=== PATIENT | female | born 1960 | race Caucasian/White ===

== ENCOUNTER 2018-03-25 11:33 | Outpatient (REF) | payer MEDICAID, SELFPAY ==
[2018-03-25 12:50] LABS: BUN 24 mg/dL (7-18); CREATININE 0.98 mg/dL (0.55-1.02); Calcium 9.3 mg/dL (8.5-10.1); Chloride 103 mmol/L (98-107); Estimated GFR 58.29 (mL/min/1.73m2); Glucose 65 mg/dL (70-100); Sodium 142 mmol/L (136-145)
== END 2018-03-25 11:53 ==
LOC: NCHCN 11:33
PROVIDERS: PCP Family Medicine; Visit Provider Family Medicine
DX: N28.9 Disorder of kidney and ureter, unspecified (principal)
CPT/HCPCS: 80048

== ENCOUNTER 2018-07-22 02:25 | Outpatient (CLI) | payer MEDICAID, SELFPAY ==
--- NOTE | 2018-07-22 08:50 | DI.MAMMO_ITS ---
SYMPTOMS/DIAGNOSIS: SCREENING, Z12.31 MAMMOGRAM: Mammograms were interpreted according to the usual protocol including computer analysis with CAD system, tomosynthesis and C view imaging. The breasts are of moderate density with fairly symmetrical distribution of fibroglandular tissue. No dominant mass or clumped microcalcification is identified in either breast. The current examination is compared with previous examinations including May 2017 and there has been no gross interval change in appearance in comparison with the previous studies. CONCLUSION: No specific evidence of malignancy at this time. Routine screening examinations are suggested at yearly intervals due to the family history of breast carcinoma. Category I. Breast density Category B. MQSA ASSESSMENT OF FINDINGS: Negative. Category 1. Patient will receive a letter notifying them of these results. BI-RADS category B. There are scattered areas of fibroglandular density.
== END 2018-07-22 02:45 ==
PROVIDERS: PCP Family Medicine; Visit Provider Family Medicine
DX: Z12.31 Encounter for screening mammogram for malignant neoplasm of breast (principal); Z80.3 Family history of malignant neoplasm of breast
CPT/HCPCS: 77063; 77067

== ENCOUNTER 2018-08-15 06:13 | Day surgery (SDC) | payer MEDICAID, SELFPAY ==
[2018-08-15 06:24] VITALS: BP 125/88; PULSE 71; RESP 16; TEMP 36.1; O2SAT 96
--- NOTE | 2018-08-15 06:33 | HPE_ITS ---
Date of service: 08/15/18 Time of Service: 06:32 Assessment and Plan (1) Rectal bleeding: Current visit: No Status: Acute A\\ Intermittent bright red blood per rectum P\\ Colonoscopy under sedation Risks, benefits and complications have been reviewed. Complications include but are not limited to bleeding, pain, perforation, missed small lesion/polyp, sore throat, aspiration and adverse reaction to the medications. Questions were entertained and answered to their satisfaction and they wished to proceed. No guarantees were given or implied. History of Present Illness Chief Complaint: Rectal bleeding Narrative: Mrs. Solano is a pleasant 58 year old who over the last 6 months has had intermittent rectal bleeding. The blood is bright red and around the stool. It is not on the tissue paper or dripping into the toilet. She had a colonoscopy in 2009 and had some rectal hyperplastic polyps. She was not noted to have diverticulosis. There is no family history of colon cancer that she is aware of. She denies any weight loss or melena. She has had no pain. She has regular soft BM's daily. No hx of constipation or diarrhea. spotting bright red Frequency: intermittent 4-6 months pain with bowel movement and pain with bleeding Denies fever(s) or fatigue No changes in her health since she was seen in the office in June. 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) roasterman (current) use of non-steroidal anti-inflammatories (nsaid) (Chronic) Renal insufficiency (Chronic) Rectal bleeding (Acute) GERD (gastroesophageal reflux disease) (Chronic) Arthritis of both hips (Acute) Hyperplastic colon polyp (Acute ~2009) Depression (Chronic) Chronic rhinitis (Acute 06/28/17) Chondromalacia of patella, right (Acute 04/25/15) Allergic rhinitis due to pollen (Chronic 03/18/16) H/O fracture of wrist (Acute) Surgical History S/P colonoscopy (Acute ~2009) 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/16) Family History Father Heart disease Social History Smoking/Tobacco Use Status: Never Alcohol Intake: current Alcohol Intake frequency: holidays/special occasions only Drug use: Never Substance use type: does not use Household members: spouse Number of Children: 0 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 What type of physical activity do you participate in: walking Frequency: 5-6 times per week Do you feel safe at home: Yes Do you feel safe in your relationship?: Yes Meds Home Medications Medication Instructions Recorded Confirmed Type bupropion HCl 1 tab PO HS 11/05/13 08/11/18 History vvxoknud-xagqx-cuo8-C-reba-bor 1 tab PO BID 11/05/13 08/11/18 History [Zqidvlf-Absts-GUI Complex Cplt] iron 65 mg PO .NOON 11/05/13 07/08/18 History multivitamin [Daily Value] 1 tab PO .NOON 11/05/13 08/11/18 History Menapause Formula 1 tab PO BID 07/13/16 08/11/18 History Tumeric 1 tab PO BID 07/13/16 08/11/18 History calcium carbonate-vitamin D3 1 cap PO BID 07/13/16 08/11/18 History [Calcium 600 + Vit D Softgel] cetirizine [Zyrtec] 10 mg PO DAILY 07/13/16 08/11/18 History meloxicam 15 mg PO HS 07/13/16 08/11/18 History montelukast [Singulair] 10 mg PO HS 07/13/16 08/11/18 History bisacodyl 5 mg tablet,delayed 5 mg PO ONCE #4 tab 07/08/18 07/08/18 Rx release fluoxetine 40 mg capsule 80 mg PO QAM cap 07/08/18 08/11/18 History ginseng 100 mg capsule 100 mg PO DAILY 07/08/18 08/11/18 History polyethylene glycol 3350 17 gram 255 g PO DAILY #15 each 07/08/18 07/08/18 Rx oral powder packet desonide 0.05 % topical cream 1 applic TP BID PRN 07/19/18 08/11/18 History fluticasone propionate 50 1 spray DAMIAN DAILY PRN 07/19/18 08/11/18 History mcg/actuation nasal spray,suspension omeprazole 20 mg capsule,delayed 20 mg PO DAILY 07/19/18 08/11/18 History release triamcinolone acetonide 0.1 % 1 applic DT TID 07/19/18 07/19/18 History dental paste triamcinolone acetonide 0.1 % 1 applic TP BID 07/19/18 08/11/18 History topical cream Allergies Allergy/AdvReac Type Severity Reaction Status Date / Time No Known Allergies Allergy Unverified 08/15/18 06:30 Exam Const General: cooperative and comfortable HENMT Head: normocephalic and atraumatic Resp Effort & Inspection: normal respiratory effort Auscultation: clear to auscultation bilaterally Cardio Rate: regular rate Rhythm: regular rhythm Heart Sounds: no gallops, no murmurs and no rubs Results Last Vital Signs Temp 97.0 F L 08/15/18 06:24 Pulse 71 08/15/18 06:24 Resp 16 08/15/18 06:24 BP 125/88 08/15/18 06:24 Pulse Ox 96 08/15/18 06:24
--- NOTE | 2018-08-15 06:37 | W.COLOREPORT ---
Date of service: 08/15/18 Time of Service: 07: Colonoscopy Report Date of procedure: 08/15/18 Pre-op diagnosis general: Intermittent Rectal Bleeding Post-op diagnosis procedure note: other (Rectal polyps and small internal hemorrhoids) Procedure: Colonoscopy with biopsies by cold forceps Surgeon: Eladia Lares Anesthesia proc note operative: other (General/ ASA 2/Ana Maria George, SADE) Estimated blood loss (mL): 3 Pathology: other (Rectal polyps x3 ) Complications: None Disposition: same day Indications: Mrs. Solano is a pleasant 58 year old female seen in the office for intermittent rectal bleeding. Her last colonoscopy was in 2008 and she was noted to have some hyperplastic polyps in the rectum. Risks, benefits and complications have been reviewed. Complications include but are not limited to bleeding, pain, perforation, missed small lesion/polyp, sore throat, aspiration and adverse reaction to the medications. Questions were entertained and answered to their satisfaction and they wished to proceed. No guarantees were given or implied. Prep: Miralax/Dulcolax Procedure Start Time: : Procedure End Time: :56 Retraction Time: 23 minutes Findings: 3 small rectal polyps, all < 0.5 cm in size Procedure Description: After informed consent was obtained the patient was taken to the procedure room and placed in a left decubitous position. Monitors were applied and a time out was done. The patients name, date of , procedure, allergies to medications and metal in their body was reviewed. The patient was then sedated. Once sedated and comfortable a rectal exam was done. External exam was normal. Internal exam revealed a normal sphincter tone and no palpable masses. The scope was then introduced and retro-flexed. Grade 1 internal hemorrhoids were identified. The scope was then advanced to the cecum without difficulty. The TI and appendiceal orifice were identified. The prep was adequate. The scope was then slowly retracted over 23 minutes back into the rectum. Polyps were removed in the rectum with cold forceps. The scope was removed and the patient was woken up and taken back to Same day surgery in stable condition. The patient tolerated the procedure well and there were no immediate complications. Follow up: The patient should follow up in 10 years unless the polyps come back as pre-malignant or unless they develop changes in bowel habits or other new gastrointestinal complaints.
--- NOTE | 2018-08-15 06:40 | W.PM.DSUDISC ---
Discharge Plan Disposition Patient Disposition: HOME Condition: Good Discharge Details Reason For Visit: Rectal bleeding Attending Provider: Eladia Lares Primary Care Provider: Laura Brown Home Meds and New Rx's Prescriptions: Continued ginseng 100 mg capsule 100 mg PO DAILY RF: 0 omeprazole 20 mg capsule,delayed release(DR/EC) 20 mg PO DAILY RF: 0 triamcinolone acetonide [Oralone] 0.1 % paste 1 applic DT TID RF: 0 fluticasone propionate [Flonase Allergy Relief] 50 mcg/actuation spray,suspension 1 spray DAMIAN DAILY PRNRF: 0 desonide 0.05 % cream 1 applic TP BID PRNRF: 0 triamcinolone acetonide 0.1 % cream 1 applic TP BID RF: 0 multivitamin [Daily Value] 1 EACH tablet 1 tab PO .NOON RF: 0 bupropion HCl 150 MG tablet extended release 12 hr 1 tab PO HS RF: 0 iron 18 MG tablet 65 mg PO .NOON RF: 0 Jcteqsjarwa-Rdedw-OXJ Complex 1 EACH tablet 1 tab PO BID RF: 0 fluoxetine 40 mg capsule 80 mg PO QAM RF: 0 cetirizine [Zyrtec] 10 MG tablet 10 mg PO DAILY RF: 0 meloxicam 15 MG tablet 15 mg PO HS RF: 0 montelukast [Singulair] 10 MG tablet 10 mg PO HS RF: 0 calcium carbonate-vitamin D3 [Calcium 600 with Vitamin D3] 1 EACH capsule 1 cap PO BID RF: 0 Menapause Formula 1 tab PO BID RF: 0 Tumeric 1 tab PO BID RF: 0 Discontinued bisacodyl [Dulcolax (bisacodyl)] 5 mg tablet,delayed release (DR/EC) 5 mg PO ONCE Qty: 4 RF: 0 polyethylene glycol 3350 17 gram powder in packet 255 g PO DAILY Qty: 15 RF: 0 Discharge Instructions Instructions: Colonoscopy (DC), Hemorrhoids (DC), Colorectal Polyps (DC) Additional Instructions: Findings: 1. Small flat polyps that looked benign 2.Small internal hemorrhoids Follow up: most likely 10 years Please call if you develop: fevers >101.5 Nausea or Vomiting Abdominal pain that is not transient DAY SURGERY UNIT POST COLONOSCOPY INSTRUCTIONS 1. Because there will be medication in your system for the next 24 hours, you may feel a little sleepy. Your coordination will be affected. Therefore: a. Do not drive or operate dangerous equipment for 24 hours. b. Do not drink alcohol beverages for 24 hours (not even beer). c. Plan to go home and rest for the day. 2. Generally there are no restrictions on your activity after a day or so has gone by, but you may feel a bit fatigued for a few days. 3 After you arrive home you may have a light meal and return to a normal diet as you can tolerate it without feeling sick to your stomach. 4. After surgery, you may feel pain or discomfort. This should be only transient, but if it persists please contact your doctor. 5. If there are any questions regarding the findings of your procedure, please feel free to contact your doctor. 6. If you are unable to contact your doctor with a problem, contact the hospital at [phone]. 7. Continue all your regular medications unless directed otherwise. I understand the above instructions and have no questions. Signature of Patient or Responsible Adult Escort Date/Time Name of Responsible Adult Escort Signature of Nurse Date/Time Activity:: Activity as Tolerated Diet:: high fiber diet Discharge Orders Discharge Orders: Discharge Order (Routine); Ordered 08/15/18 Ordered By: Eladia Lares DS: Diagnosis Discharge Diagnosis (1) Rectal bleeding: Status: Acute (2) S/P colonoscopy: Status: Acute (3) Colorectal polyps: Status: Acute (4) Internal hemorrhoids: Status: Acute
[2018-08-15] MEDS: Lactated Ringers 1,000 ML 80 ML IV (06:45)
--- NOTE | 2018-08-15 07:52 | BOWEL_PTH ---
PATIENT: Karla Solano LOC: [facility] U#:[id number] AGE/SX: 58/F ROOM: RE08/15/[address]: Eladia Lares MD : 1960 BED: DIS: 08/15/2018 SPEC #: [id number] RECD: 08/15/18 12:44 STATUS: NANCY REQ #: [id number] TERRY: 08/15/18 07:[address]: Eladia Lares DEPT: Surgical Specimen RECD BY: Nelly Vieira ENTERED: 08/15/18 12:45 SP TYPE: Bowel OTHR DR: Laura Brown Tissues: 1 - BIOPSY BOWEL Procedures: GROSS AND MICRO LEVEL 4 Comments: [id number]
[2018-08-15 08:40] VITALS: BP 107/82; PULSE 64; RESP 16; TEMP 36.4; O2SAT 100
== END 2018-08-15 08:55 | disposition home or self-care (01) ==
PROVIDERS: PCP Family Medicine; Visit Provider Surgery
PROC: 0DJD8ZZ Inspection of Lower Intestinal Tract, Via Natural or Artificial Opening Endoscopic (ICD-10-PCS; CPT 45378; principal; 2018-08-15 07:30)
DX: K62.1 Rectal polyp (principal); K62.5 Hemorrhage of anus and rectum; K64.0 First degree hemorrhoids; Z87.19 Personal history of other diseases of the digestive system; K21.9 Gastro-esophageal reflux disease without esophagitis
CPT/HCPCS: 45380; 88305; NC

== ENCOUNTER 2018-11-10 16:41 | Outpatient (REF) | payer MEDICAID, SELFPAY ==
[2018-11-10 19:59] LABS: HCT 45.1 % (36.0-46.0); HGB 14.9 g/dL (12.0-15.5); Mean Corpuscular Hemoglobin 29.4 pg (27.0-33.0); Mean Platelet Volume 10.9 fL (8.0-11.0); Platelet Count 308 x1000/uL (130-400); RBC 5.07 m/cumm (4.00-5.20); RBC Distribution Width 13.2 % (11.7-14.6); White Blood Cell Count 5.38 k/cumm (4.4-10.8)
[2018-11-10 20:00] LABS: Anion Gap 11.5 mmol/L (3-11); BUN 23 mg/dL (7-18); CO2 23.5 mmol/L (21.0-32.0); CREATININE 0.95 mg/dL (0.55-1.02); Calcium 9.5 mg/dL (8.5-10.1); Chloride 105 mmol/L (98-107); Glucose 89 mg/dL (70-100); Potassium 4.2 mmol/L (3.5-5.1); Sodium 140 mmol/L (136-145); TSH (W/Ref FT4) 1.87 uIU/mL (0.36-3.74)
== END 2018-11-10 17:01 ==
LOC: NCHCN 16:41
PROVIDERS: PCP Family Medicine; Visit Provider Family Medicine
DX: R53.83 Other fatigue (principal); F41.9 Anxiety disorder, unspecified
CPT/HCPCS: 80048; 85027; 84443

== ENCOUNTER 2019-09-15 02:15 | Outpatient (CLI) | payer MEDICAID, SELFPAY ==
--- NOTE | 2019-09-15 | DI.MAMMO_ITS ---
EXAM: MAMMO SCREENING CLINICAL HISTORY: SCREENING, Z12.31 TECHNIQUE: Mammograms were interpreted according to the usual protocol including computer analysis w ith CAD system, tomosynthesis and C-view imaging. COMPARISON: 2009 through 2018 FINDINGS: The breasts are composed of scattered fibroglandular densities, Breast Density category B. No suspicious masses or suspicious microcalcifications are seen. No skin thickening or abnormal axillary lymph nodes are seen. There has been no significant change from prior exams. IMPRESSION: BI-RADS category 1, yearly screening mammography is recommended. Breast density category B, scattered fibroglandular densities.
== END 2019-09-15 02:35 ==
PROVIDERS: PCP Family Medicine; Visit Provider Family Medicine
DX: Z12.31 Encounter for screening mammogram for malignant neoplasm of breast (principal)
CPT/HCPCS: 77063; 77067

== ENCOUNTER 2020-02-16 12:07 | Outpatient (REF) | payer MEDICAID, SELFPAY ==
[2020-02-16 19:57] LABS: Anion Gap 6.6 mmol/L (3-11); BUN 28 mg/dL (7-18); CO2 28.4 mmol/L (21.0-32.0); CREATININE 1.11 mg/dL (0.55-1.02); Calcium 9.5 mg/dL (8.5-10.1); Chloride 106 mmol/L (98-107); Estimated GFR 50.14 (mL/min/1.73m2); Glucose 85 mg/dL (74-106); Potassium 4.4 mmol/L (3.5-5.1); Sodium 141 mmol/L (136-145)
== END 2020-02-16 12:27 ==
LOC: NCHCN 12:07
PROVIDERS: PCP Family Medicine; Visit Provider Family Medicine
DX: N28.9 Disorder of kidney and ureter, unspecified (principal); Z01.818 Encounter for other preprocedural examination
CPT/HCPCS: 80048

== ENCOUNTER 2020-07-19 11:22 | Outpatient (REF) | payer MEDICAID, SELFPAY ==
--- NOTE | 2020-07-19 10:50 | PAPFT_PTH ---
PATIENT: Karla Solano LOC: [facility]#:[id number] AGE/SX: 60/F ROOM: RE07/19/[address]: Laura Brown : 1960 BED: DIS: 07/19/2020 SPEC #: [id number] RECD: 07/22/20 12:55 STATUS: NANCY [place] #: [id number] TERRY: 07/19/20 10:[address]: Laura Brown DEPT: [facility] Cytology RECD BY: Nelly Vieira Tissues: 1 - CX/ENDOCX FOR PAP SMEARS Procedures: PAP THIN PREP/UVM Screening HPV DNA PROBE Comments: [id number]
[2020-07-19 19:02] LABS: Anion Gap 6.2 mmol/L (3-11); BUN 19 mg/dL (7-18); CO2 28.8 mmol/L (21.0-32.0); CREATININE 1.1 mg/dL (0.55-1.02); Calcium 9.8 mg/dL (8.5-10.1); Chloride 107 mmol/L (98-107); Estimated GFR 50.67 (mL/min/1.73m2); Glucose 71 mg/dL (74-106); Potassium 4.5 mmol/L (3.5-5.1); Sodium 142 mmol/L (136-145)
== END 2020-07-19 11:23 | disposition home or self-care (01) ==
LOC: NCHCN 11:22
PROVIDERS: PCP Family Medicine; Visit Provider Family Medicine
DX: N28.9 Disorder of kidney and ureter, unspecified (principal); Z12.4 Encounter for screening for malignant neoplasm of cervix; Z11.51 Encounter for screening for human papillomavirus (HPV)
CPT/HCPCS: 80048; 88142; 87624

== ENCOUNTER 2020-09-20 03:35 | Outpatient (CLI) | payer MEDICAID, SELFPAY ==
--- NOTE | 2020-09-20 | DI.MAMMO_ITS ---
Exam(s) MAMMO SCREENING EXAM: MAMMO SCREENING CLINICAL HISTORY: SCREENING, Z12.31 TECHNIQUE: Bilateral full field digital CC and MLO mammographic images were obtained with 3D tomosyn thesis and utilizing computer aided detection (CAD). COMPARISON: Available for comparison. FINDINGS: Masses/Architectural Distortion: None seen. Since the prior examination the patient has undergone a b ilateral breast reduction. Microcalcifications: No suspicious pleomorphic-type are seen. Skin Thickening/Nipple Retraction: None. IMPRESSION: 1. No specific features of malignancy noted. 2. Interval bilateral breast reduction mammoplasty. 3. Unless there is more urgent need, screening mammography is recommended, as per [place] [employer] guidelines. BI-RADS Category 2 - Benign Findings Breast Density - Category B - Scattered areas of fibroglandular density Breast density category C or D implies that the patient has dense breast tissue. Dense breast tissue is very common and is not abnormal but dense breast tissue can make it harder to find cancer on a ma mmogram. Also, dense breast tissue may increase their breast cancer risk. This information about the result of the mammogram report was provided to the patient to raise their awareness. Use this report when you speak with the patient about their risks for breast cancer, which includes their family hist ory. At that time, you may recommend for more screening tests (Ultrasound or MRI) as they might be us eful based on their risk. A negative radiographic report should not delay biopsy if a dominant or clinically suspicious mass is present. Up to ten percent of cancers are not identified on mammography. A negative report may reinforce clinical impression. Adenosis and dense breasts may obscure an underlying neoplasm. False positive reports average 6 to 10%. Patient will receive a letter notifying them of these results.
== END 2020-09-20 03:55 ==
PROVIDERS: PCP Family Medicine; Visit Provider Family Medicine
DX: Z12.31 Encounter for screening mammogram for malignant neoplasm of breast (principal); Z98.890 Other specified postprocedural states
CPT/HCPCS: 77063; 77067

== ENCOUNTER 2021-07-11 15:09 | Outpatient (REF) | payer MEDICAID, SELFPAY ==
[2021-07-11 14:57] LABS: Anion Gap 9.3 mmol/L (3-11); BUN 19 mg/dL (7-18); CO2 24.7 mmol/L (21.0-32.0); Calcium 9.1 mg/dL (8.5-10.1); Calculated LDL 160 mg/dL (<100); Chloride 108 mmol/L (98-107); Cholesterol 237 mg/dL (<200); Estimated GFR 56.37 (mL/min/1.73m2); Glucose 96 mg/dL (74-106); HDL Cholesterol 59 mg/dL (40-60); Potassium 4.5 mmol/L (3.5-5.1); Sodium 142 mmol/L (136-145); Triglyceride 93 mg/dL (<150)
[2021-07-11 15:13] LABS: Hemoglobin A1C 5.8 % (<5.7)
[2021-07-14 10:30] LABS: HIV-1/2 Ag & Ab Screen Negative (Negative)
== END 2021-07-11 15:10 | disposition home or self-care (01) ==
LOC: NCHCN 15:09
PROVIDERS: PCP Family Medicine; Visit Provider Family Medicine
DX: N28.9 Disorder of kidney and ureter, unspecified (principal); Z79.1 Long term (current) use of non-steroidal anti-inflammatories (NSAID); Z13.220 Encounter for screening for lipoid disorders; Z11.4 Encounter for screening for human immunodeficiency virus [HIV]
CPT/HCPCS: 80048; 80061; 87389; 83036

== ENCOUNTER 2021-07-30 03:27 | Outpatient (CLI) | payer MEDICAID, SELFPAY ==
--- NOTE | 2021-07-30 15:30 | NS.NUTBLAN_ITS ---
Assessment: Ms. Solano presents for nutritional counseling for prediabetes. Her weight has been stable and it is wnl. She is physically active. She does describe a history of type 2 dm in some of one of her parent's siblings. Her A1C is 5.7. In looking at her blood glucose history in [facility], she has several random low blood sugar readings. She also describes feeling light headed and shaking and as if she is hypoglycemic occasionally when she goes on her walks after work especially if she does not bring a snack. Her typical diet recall shows that she has: Breakfast: [place] with peanut butter and coffee. Snack: 2 x nicole crackers Lunch: Pasta with pesto, smart food popcorn, mints Snack: almonds, a little chocolate Dinner: pasta, veggie, salad Does not eat after 6:00 pm. She tries to have a snack before her physical activity or at least during. Nutrition Diagnosis: Altered nutrition related laboratory values as evidenced by A1C of 5.7. Intervention: We discussed the physiology of prediabetes and how it makes sense to eat a diet that is proportionately lower in carbohydrate than she is eating. We discussed increasing protein and fat at meals and decreasing portions of pasta, bread etc. We discussed that although she eats healthfully and in portions that are the right amount, she is likely insulin resistant so we want to decrease the insulin response by the pancreas. High circulating levels of insulin may also be the culprit for hypoglycemia that she experiences. We discussed ways to add more protein and some fat to her meals and snacks. Provided written materials. I did encourage Karla to consume a small amount of pure carbohydrate food without any protein or fat if she does get into a hypoglycemic state versus having almonds or chocolate to try to raise her blood sugars. Provided Karla with a CGM sample so she could get an idea of her blood sugar trends with changes in her eating and perhaps we can figure out how to avoid hypoglcyemia. I did tell her that a CGM is nothing she requires for more than this trial period. It is simply to give us some information to help us adjust her eating plan so that it is optimal. Monitoring and Evaluation: I will monitor Karla's blood sugar trends and we can evaluate her nutrition care plan and adjust accordingly. Thank you for the referral.
== END 2021-07-30 03:28 | disposition home or self-care (01) ==
PROVIDERS: PCP Family Medicine; Visit Provider Dietitian, Registered
DX: R73.03 Prediabetes (principal); Z71.3 Dietary counseling and surveillance
CPT/HCPCS: 97802

== ENCOUNTER 2021-09-10 04:37 | Outpatient (CLI) | payer MEDICAID, SELFPAY | END 2021-09-10 04:38 | disposition home or self-care (01) | LOC: DS 04:37 | PROVIDERS: PCP Family Medicine; Visit Provider Dietitian, Registered ==

== ENCOUNTER → 2021-09-26 00:05 | Outpatient (CLI) | payer MEDICAID, SELFPAY ==
--- NOTE | 2021-09-26 08:20 | DI.MAMMO_ITS ---
Exam(s) MAMMO SCREENING EXAM: MAMMO SCREENING CLINICAL HISTORY: SCREENING, Z12.31 TECHNIQUE: Bilateral full field digital CC and MLO mammographic images were obtained with 3D tomosyn thesis and utilizing computer aided detection (CAD). COMPARISON: Available for comparison. FINDINGS: Masses/Architectural Distortion: None seen. There are postsurgical changes of bilateral breast reduct ions. Microcalcifications: No suspicious pleomorphic-type are seen. Skin Thickening/Nipple Retraction: None. IMPRESSION: 1. No significant interval change with no specific features of malignancy noted. 2. Unless there is more urgent need, screening mammography is recommended, as per [employer] [employer] guidelines. BI-RADS Category 2 - Benign Findings Breast Density - Category B - Scattered areas of fibroglandular density Breast density category C or D implies that the patient has dense breast tissue. Dense breast tissue is very common and is not abnormal but dense breast tissue can make it harder to find cancer on a ma mmogram. Also, dense breast tissue may increase their breast cancer risk. This information about the result of the mammogram report was provided to the patient to raise their awareness. Use this report when you speak with the patient about their risks for breast cancer, which includes their family hist ory. At that time, you may recommend for more screening tests (Ultrasound or MRI) as they might be us eful based on their risk. A negative radiographic report should not delay biopsy if a dominant or clinically suspicious mass is present. Up to ten percent of cancers are not identified on mammography. A negative report may reinforce clinical impression. Adenosis and dense breasts may obscure an underlying neoplasm. False positive reports average 6 to 10%. Patient will receive a letter notifying them of these results.
== END ==
PROVIDERS: PCP Family Medicine; Visit Provider Family Medicine
DX: Z12.31 Encounter for screening mammogram for malignant neoplasm of breast (principal); Z98.890 Other specified postprocedural states
CPT/HCPCS: 77063; 77067

== ENCOUNTER → 2021-11-21 00:30 | Outpatient (CLI) | payer MEDICAID, SELFPAY ==
--- NOTE | 2021-11-21 | DI.RAD_ITS ---
Exam(s) XR ANKLE LT COMPLETE EXAM: XR ANKLE LT COMPLETE CLINICAL HISTORY: LT ANKLE PAIN, M25.572, ROLLED ANKLE, ? FX VS SPRAIN TECHNIQUE: 2D digital imaging was performed of the left ankle. Three images were obtained. AP, lat eral and oblique views were obtained. COMPARISON: No exams were available for comparison FINDINGS: BONES: Tiny calcific densities are seen at the tip of the lateral malleolus. This may represent a ti ny avulsed fracture fragment. There is a well corticated osseous density at the tip of the lateral m alleolus which appears old. This likely represents sequelae of prior injury. No bony destructive le norma is seen. JOINTS:The ankle mortise is normally aligned. SOFT TISSUE: Normal. IMPRESSION: Tiny calcific densities are seen at the tip of the lateral malleolus which may represent and tiny avu lsed fracture fragment. DATA REPOSITORY: RADIATION DOSE DELIVERED:
== END ==
PROVIDERS: PCP Family Medicine; Visit Provider Physician Assistant Medical
DX: M25.572 Pain in left ankle and joints of left foot (principal); M25.872 Other specified joint disorders, left ankle and foot
CPT/HCPCS: 73610

== ENCOUNTER 2021-11-21 15:54 | Outpatient (REF) | payer MEDICAID, SELFPAY ==
[2021-11-21 18:46] LABS: Hemoglobin A1C 5.3 % (<5.7)
== END 2021-11-21 15:55 | disposition home or self-care (01) ==
LOC: NCHCN 15:54
PROVIDERS: PCP Family Medicine; Visit Provider Family Medicine
DX: R73.03 Prediabetes (principal)
CPT/HCPCS: 83036

== ENCOUNTER 2022-07-31 17:26 | Outpatient (REF) | payer MEDICAID, SELFPAY ==
[2022-07-31 17:25] LABS: BUN 26 mg/dL (7-18); CREATININE 1.1 mg/dL (0.55-1.02); Calcium 9.2 mg/dL (8.5-10.1); Chloride 107 mmol/L (98-107); Estimated GFR 56.81 (mL/min/1.73m2); Glucose 108 mg/dL (74-106); Potassium 4.1 mmol/L (3.5-5.1); Sodium 143 mmol/L (136-145)
[2022-07-31 17:28] LABS: Hemoglobin A1C 5.7 % (<5.7)
== END 2022-07-31 17:27 | disposition home or self-care (01) ==
LOC: NCHCN 17:26
PROVIDERS: PCP Family Medicine; Visit Provider Family Medicine
DX: R73.03 Prediabetes (principal); N28.9 Disorder of kidney and ureter, unspecified
CPT/HCPCS: 80048; 83036

== ENCOUNTER 2022-10-02 00:50 | Outpatient (CLI) | payer MEDICAID, SELFPAY ==
--- NOTE | 2022-10-02 | DI.MAMMO_ITS ---
Exam(s) MAMMO SCREENING EXAM: MAMMO SCREENING CLINICAL HISTORY: SCREENING MAMMO FOR BREAST CANCER Z12.31. TECHNIQUE: Bilateral full field digital CC and MLO mammographic images were obtained with 3D tomosyn thesis and utilizing computer aided detection (CAD). COMPARISON: Prior mammograms were reviewed. Patient underwent bilateral reduction surgery 2019. FINDINGS: There has been no significant change in the appearance and distribution of the fibroglandular tissue. The architectural distortion from the bilateral reduction mammoplasty surgery is again noted. There are no new spiculated masses nor malignant appearing microcalcification groups. There is no significant architectural distortion nor skin thickening-retraction. IMPRESSION: No radiographic evidence of malignancy. BI-RADS Category 2 - Benign Findings Breast Density - Category B - Scattered areas of fibroglandular density Breast density Category C or D implies that the patient has dense breast tissue. Dense breast tissue can make it harder to find cancer on a mammogram. Dense breast tissue is also associated with an incr eased risk of breast cancer. This information about the result of the mammogram report was provided to the patient to raise their awareness. Use this report when you speak with the patient about their risks for breast cancer, which includes their family history. At that time, you may recommend additional screening tests (Ultrasoun d or MRI) as these tests may add significant information. A negative radiographic report should not delay biopsy if a dominant or clinically suspicious mass is present. Up to ten percent of cancers are not identified on mammography. A negative report may reinforce clinical impression. Adenosis and dense breasts may obscure an underlying neoplasm. False positive reports average 6 to 10%. Patient will receive a letter notifying them of these results.
== END 2022-10-02 01:10 ==
LOC: DI 00:50
PROVIDERS: PCP Family Medicine; Visit Provider Family Medicine
DX: Z12.31 Encounter for screening mammogram for malignant neoplasm of breast (principal)
CPT/HCPCS: 77063; 77067

== ENCOUNTER 2023-08-09 14:55 | Outpatient (REF) | payer MEDICAID, SELFPAY ==
[2023-08-09 15:26] LABS: HCT 45.8 % (36.0-46.0); HGB 15.2 g/dL (11.2-15.7); MCH 30.2 pg (27.0-33.0); MCHC 33.2 % (32.0-36.0); MCV 91 fL (80-95); Platelet Count 284 10^3/uL (130-400); RBC 5.04 10^6/uL (3.93-5.22); RDW 12.2 % (11.7-14.6); RDW-SD 40.7 fL; WBC 5.16 10^3/uL (4.4-10.8)
[2023-08-09 15:42] LABS: ALT 32 U/L (14-59); AST 18 U/L (15-37); Alkaline Phosphatase 75 U/L (46-116); Anion Gap 8.9 mmol/L (3-11); BUN 25 mg/dL (7-18); Bilirubin, Total 0.5 mg/dL (0.2-1.0); CO2 30.1 mmol/L (21.0-32.0); Calcium 9.3 mg/dL (8.5-10.1); Chloride 105 mmol/L (98-107); Glucose 67 mg/dL (74-106); Potassium 4.5 mmol/L (3.5-5.1); Sodium 144 mmol/L (136-145)
[2023-08-09 16:11] LABS: Hemoglobin A1C 5.7 % (<5.7)
== END 2023-08-09 14:56 | disposition home or self-care (01) ==
LOC: NCHCN 14:55
PROVIDERS: PCP Family Medicine; Visit Provider Family Medicine
DX: N18.31 Chronic kidney disease, stage 3a (principal); R73.03 Prediabetes
CPT/HCPCS: 80053; 85027; 83036

== ENCOUNTER → 2023-10-07 00:21 | Outpatient (CLI) | payer MEDICAID, SELFPAY ==
--- NOTE | 2023-10-07 | DI.MAMMO_ITS ---
Exam(s) MAMMO SCREENING EXAM: MAMMO SCREENING CLINICAL HISTORY: Z12.31 Screening mammogram TECHNIQUE: Bilateral full field digital CC and MLO mammographic images were obtained with 3D tomosyn thesis and utilizing computer aided detection (CAD). COMPARISON: Available for comparison. FINDINGS: Masses/Architectural Distortion: There findings are prior breast reduction bilaterally. No suspiciou s masses are seen. No new areas of architectural distortion are seen. Microcalcifications: No suspicious pleomorphic-type are seen. Skin Thickening/Nipple Retraction: None. IMPRESSION: 1. No significant interval change with no specific features of malignancy noted. 2. Unless there is more urgent need, screening mammography is recommended, as per [employer] guidelines. BI-RADS Category 2 - Benign Findings Breast Density - Category B - Scattered areas of fibroglandular density Breast density category C or D implies that the patient has dense breast tissue. Dense breast tissue is very common and is not abnormal but dense breast tissue can make it harder to find cancer on a ma mmogram. Also, dense breast tissue may increase their breast cancer risk. This information about the result of the mammogram report was provided to the patient to raise their awareness. Use this report when you speak with the patient about their risks for breast cancer, which includes their family hist ory. At that time, you may recommend for more screening tests (Ultrasound or MRI) as they might be us eful based on their risk. A negative radiographic report should not delay biopsy if a dominant or clinically suspicious mass is present. Up to ten percent of cancers are not identified on mammography. A negative report may reinforce clinical impression. Adenosis and dense breasts may obscure an underlying neoplasm. False positive reports average 6 to 10%. Patient will receive a letter notifying them of these results.
== END ==
PROVIDERS: PCP Family Medicine; Visit Provider Family Medicine
DX: Z12.31 Encounter for screening mammogram for malignant neoplasm of breast (principal)
CPT/HCPCS: 77063; 77067

== ENCOUNTER 2024-02-01 09:08 | Outpatient (CLI) | payer MEDICAID, SELFPAY ==
[2024-02-04 16:05] LABS: West Nile Virus Ab, IgM Negative (Negative)
== END 2024-02-01 09:09 | disposition home or self-care (01) ==
LOC: LBO 09:09
PROVIDERS: PCP Family Medicine; Visit Provider Family Medicine
DX: R52 Pain, unspecified (principal)
CPT/HCPCS: 36415; 86788; 86789

== ENCOUNTER 2024-06-08 15:34 | Outpatient (CLI) | payer MEDICAID, SELFPAY ==
--- NOTE | 2024-06-08 13:45 | DI.RAD_ITS ---
Exam(s) XR KNEE RT 3V AP,LAT,MICHAEL EXAM: XR KNEE RT 3V AP,LAT,MICHAEL CLINICAL HISTORY: RIGHT KNEE PAIN. TECHNIQUE: 2D digital imaging was performed. COMPARISON: No exams were available for comparison FINDINGS: 3 views No evidence of fracture nor prominent joint effusion. There are mild-moderate degenerative changes i n the medial compartment with mild joint space narrowing and marginal osteophyte off the outer aspect of the medial femoral condyle. Lateral compartment exhibits normal height and no osteophytes. Bone density normal. No osseous lesions. IMPRESSION: Some degenerative changes in the medial compartment. DATA REPOSITORY: RADIATION DOSE DELIVERED:
--- NOTE | 2024-06-08 13:45 | DI.RAD_ITS ---
Exam(s) XR HIP LT AP LAT ONLY EXAM: XR HIP LT AP LAT ONLY CLINICAL HISTORY: LEFT HIP PAIN. TECHNIQUE: 2D digital imaging was performed. COMPARISON: CR PELVIS AP from 09/22/2016 CR PELVIS AP from 01/29/2017 FINDINGS: Two views There is stable position alignment of the components of the left hip prosthesis. No fracture or obvi ous loosening evident. However, there is mild increased density in the diaphysis of femur around the most caudal aspect of the femoral stem component. This finding was not evident in 2017. There is, however, no true lucency around the prosthesis. Slight irregularity of the left side of the symphysis pubis noted but this is also unchanged from 201 7. IMPRESSION: Mild findings as above. DATA REPOSITORY: RADIATION DOSE DELIVERED:
== END 2024-06-08 15:35 | disposition home or self-care (01) ==
LOC: DIORS 15:35
PROVIDERS: PCP Family Medicine; Visit Provider Student in an Organized Health Care Education/Training Program
DX: M25.552 Pain in left hip (principal); M25.561 Pain in right knee; Z96.642 Presence of left artificial hip joint
CPT/HCPCS: 73562; 73502

== ENCOUNTER 2024-06-27 01:06 | Outpatient (CLI) | payer MEDICAID, SELFPAY ==
--- NOTE | 2024-06-27 07:00 | DI.CT_ITS ---
Exam(s) CT LOWER EXTREMITY LT WO EXAM: CT LOWER EXTREMITY LT WO CLINICAL HISTORY: lt hip PAIN, ? LOOSENING LEFT HIP prosthesis,m25.552,t84.84xa. TECHNIQUE: Imaging Protocol: Axial computed tomography images with coronal and sagittal reformatted images were created and reviewed. COMPARISON: CR PELVIS AP from 07/22/2016 CR PELVIS AP from 01/29/2017 CR PELVIS AP from 08/19/2017 CR XR HIP LT AP LAT ONLY from 06/08/2024 FINDINGS: Bones: The osseous structures and articular surfaces are intact. The patient has a left total hip a rthroplasty. No lucencies are seen around the orthopedic hardware to suggest loosening. The more me dial screw in acetabular component extends beyond the cortex. There is no periosteal reaction. Dyst rophic calcifications are seen in the soft tissues adjacent to the greater trochanter. There is no e vidence of joint space narrowing or cystic degeneration seen. No lytic or sclerotic lesions are ident ified. Soft Tissues: There is a 3.2 transverse by 7.0 craniocaudad by 4.7 AP cm mildly heterogeneous mass ov erlying the iliopsoas muscle. There are some internal calcifications present. It lies lateral to th e left external iliac and left common femoral vessels. IMPRESSION: 1. No findings to suggest loosening of the left total hip arthroplasty. 2. 3.2 x 4.7 x 7.0 cm mildly heterogeneous mass with internal calcifications interposed between the l eft iliac/femoral vessels and the iliopsoas muscle. Differential considerations include soft tissue sarcoma or adenopathy. CT scan of the abdomen and pelvis with contrast and MRI of the pelvis without and with contrast is recommended. Unexpected findings RADIATION DOSE DELIVERED: 465.48mGy.cm Total DLP 465.48mGy.cm Total DLP DATA REPOSITORY: All CT scans at this facility are submitted to the National Radiology Data Registry (NRDR) Dose Index Registry (DIR) with the [employer] (ACR). RADIATION OPTIMIZATION: All CT scans at this facility use at least one of these dose optimization te chniques: automated exposure control; mA and/or kV adjustment per patient size (includes targeted exa ms where dose is matched to clinical indication); or iterative reconstruction.
--- NOTE | 2024-06-27 07:00 | DI.NM_ITS ---
Exam(s) NM BONE SCAN 3 PHASE EXAM: PR BONE SCAN 3 PHASE CLINICAL HISTORY: lt hip PAIN, ? LOOSENING L HIP prosthesis,m25.552. TECHNIQUE: Injected Dose: 26 mCi Tc-99m MDP COMPARISON: CR PELVIS AP from 08/19/2017 CR XR HIP LT AP LAT ONLY from 06/08/2024 FINDINGS: Perfusion: Symmetric. Blood Pool: Symmetric. Delayed: There is focal increased radiotracer uptake seen at the tip of the femoral component of the prosthesis. There is also increased radiotracer uptake lateral to the proximal aspect of the femoral component. These findings can be seen with loosening of the femoral component of the prosthesis. T here is also mild increased radiotracer uptake around the acetabular component. There is increased r adiotracer uptake seen bilaterally in the cervical spine likely reflecting arthropathy. Correlation with cervical spine films should be considered. IMPRESSION: 1. Findings suspicious for loosening of the femoral component of the left total hip arthroplasty. 2. There is also mild increased radiotracer uptake around the acetabular component and loosening shou ld be considered. DATA REPOSITORY:
== END 2024-06-27 01:26 ==
LOC: DI 01:06
PROVIDERS: PCP Family Medicine; Visit Provider Student in an Organized Health Care Education/Training Program
DX: T84.84XA Pain due to internal orthopedic prosthetic devices, implants and grafts, initial encounter; Z98.890 Other specified postprocedural states
CPT/HCPCS: 73700; 78315

== ENCOUNTER 2024-07-21 00:44 | Outpatient (CLI) | payer MEDICAID, SELFPAY ==
--- NOTE | 2024-07-21 06:30 | DI.MRI_ITS ---
Exam(s) MR PELVIS WO/W EXAM: MR PELVIS WO/W CLINICAL HISTORY: L iliopsoas mass,r19.00. TECHNIQUE: Imaging Protocol: Multisequence MRI scan of the pelvis was performed on a 1.5 enrique unit with both pre and post contrast infused sequences. CONTRAST MATERIAL: Intravenous: Dotarem 15 mL Oral: None COMPARISON: NM NM BONE SCAN 3 PHASE from 06/27/2024 FINDING: PELVIS: OSSEOUS: There is a left hip prosthesis. This causes regional artifact. No evidence of osteomyeliti s. There is fluid lateral to the greater trochanter and deep to the tensor fascia love, representing bursitis. SOFT TISSUES: There is a lobulated multi lobe mass structure associated with the anterior aspect of t he left hip joint measuring approximately 9 cm craniocaudal measurement and extending through the fem oral canal into the lower left pelvis. This is intimately associated with the traversing left ileo p soas tendon which results in this structure having 3 components anterior to the hip with the medial c omponent measuring approximately 3.7 by 2.9 cm; the central component measuring approximately 2 x 1 c m and lateral component measuring approximately 2 x 2.6 cm. This exhibits complex internal signal including small focus of signal dropout consistent with calcifi cation-probable loose body. Signal cracker wrist X of this mass are such that it has the appearance of a multilobulated collection most probably related to the hip joint space containing multiple foci of signal dropout-calcifications as well as some fluid signal. It exhibits some internal enhancement . There is no abnormal marrow signal in the adjacent bony pelvis structures. The ipsilateral hamstring s conjoined tendon appears unremarkable. Incidentally noted is grade 1-2 tearing in the opposite yonny e-right hamstrings conjoined origin tendon. URINARY BLADDER: Urinary bladder is collapsed. REPRODUCTIVE: There is in anterior wall uterine fibroid measuring 1.8 x 1.7 cm.. No abnormal adnexal masses. IMPRESSION: 1. There is a large complex multiloculated collection associated with the anterior aspect of the left hip prosthesis region exhibiting some internal enhancement and internal heterogeneous signal and int ernal loose bodies. This finding is possibly related to the hip prostheses such as complex abnormal joint effusion with synovial proliferation. Cannot completely exclude infection although this is les s likely given that there is no prominent surrounding soft tissue edema nor lymphadenopathy. This ex tends through the femoral canal into the pelvis just lateral to the external iliac vessels. This col lection is impressed upon and somewhat divided by the otherwise intact ileo psoas tendon. There is n o actual fluid within the ileo psoas tendon sheath itself. 2. Incidentally noted is partial tearing of the common hamstrings origin tendon on the opposite-righ t side of the hip/right ischial tuberosity. RADIATION DOSE DELIVERED: Total DLP DATA REPOSITORY: All CT scans at this facility are submitted to the National Radiology Data Registry (NRDR) Dose Index Registry (DIR) with the [employer] (ACR). RADIATION OPTIMIZATION: All CT scans at this facility use at least one of these dose optimization te chniques: automated exposure control; mA and/or kV adjustment per patient size (includes targeted exa ms where dose is matched to clinical indication); or iterative reconstruction.
[2024-07-21 08:23] LABS: CREATININE 1.1 mg/dL (0.55-1.02); Estimated GFR 56.11 (mL/min/1.73m2)
[2024-07-21] MEDS: Gadoterate meglumine 20 ML SYRINGE 15 ML IVP (09:05)
[2024-07-21] MEDS: Normal Saline Flush 10 ML SYR IVP (09:06)
[2024-07-21] MEDS: Barium Sulfate 2% W/V-Berry Smoothie 450 ML BTL PO ×2 (09:36→09:37)
[2024-07-21] MEDS: Normal Saline - Diluent 50 ML VIAL IJ (11:26)
--- NOTE | 2024-07-21 11:48 | DI.CT_ITS ---
Exam(s) CT ABDOMEN PELVIS W EXAM: CT ABDOMEN PELVIS W CLINICAL HISTORY: left ilipsoas mass,r19.00. TECHNIQUE: Imaging Protocol: Axial computed tomography images with coronal and sagittal reformatted images were created and reviewed CONTRAST MATERIAL: Intravenous: Omnipaque-350 75cc Oral: Yes. Oral contrast was also administered for bowel opacification. COMPARISON: CR PELVIS AP from 01/29/2017 FINDINGS: VISUALIZED LUNG BASES: No significant nodules nor pleural effusions evident. ABDOMEN: There is no ascites. LIVER: There is a small 7 mm hypodensity in the right hepatic lobe which is difficult to evaluate on this type of study but is probably a benign hemangioma. No focal findings in the left lobe of the li thiago. There are no dilated intrahepatic ducts. GALLBLADDER/BILIARY: No obvious gallbladder pathology. CBD is not dilated. PANCREAS: No evidence of pancreatic mass nor dilatation of the pancreatic duct. SPLEEN: Spleen is not enlarged. No obvious intrasplenic lesions. Splenic and portal veins are paten t. ADRENALS: There are no significant adrenal masses. KIDNEYS:No cysts evident. No solid renal masses. No calculi nor hydronephrosis.. ABDOMINAL AORTA: Abdominal aorta is not enlarged. LYMPH NODES:There is no retroperitoneal nor paraaortic adenopathy. No mesenteric masses. ABDOMINAL WALL: No evidence of significant anterior abdominal wall hernia. GI: There is no evidence of bowel obstruction, free air, nor abscess. PELVIS: GI: No evidence of appendicitis.No evidence of sigmoid diverticulitis. LYMPH NODES: There is no intrapelvic nor inguinal adenopathy. REPRODUCTIVE: Uterus and ovaries appear age-appropriate. URINARY BLADDER: Partially obscured by beam hardening artifact from left hip prosthesis. Not distend ed. there is an abnormal well-defined slightly lobulated mass in the anterior left pelvis intimately associated with the ileo psoas muscle, this mass measuring approximately 2.5 x 5.3 by 4.7 cm. It is located just lateral to the external iliac artery and vein. It is slightly heterogeneous internally. OSSEOUS: No fractures and no significant osseous lesions. Left hip prosthesis. Acetabular cup is amezcua pported by 2 vertical screws, 1 of which extends slightly beyond the inner cortex. Mild degenerative anterolisthesis of L5 upon S1 noted. No pars defects. IMPRESSION: 1. There is no abnormal well-defined slightly lobulated mass in the anterior left pelvis between the external iliac artery and vein on its medial aspect and the ileo psoas muscle on its lateral aspect, and extending anterior to the acetabulum into the groin region. First consideration is for neoplasm. This is mass would be accessible for percutaneous CT-guided biopsy. 2. There are no other masses in the abdomen and pelvis. 3. No ascites. RADIATION DOSE DELIVERED: 491.3mGy.cm Total DLP DATA REPOSITORY: All CT scans at this facility are submitted to the National Radiology Data Registry (NRDR) Dose Index Registry (DIR) with the [employer] (ACR). RADIATION OPTIMIZATION: All CT scans at this facility use at least one of these dose optimization te chniques: automated exposure control; mA and/or kV adjustment per patient size (includes targeted exa ms where dose is matched to clinical indication); or iterative reconstruction.
--- NOTE | 2024-07-21 16:56 | DI.VRAD_ITS ---
PROCEDURE INFORMATION: Exam: MR Pelvis Without and With Contrast, Musculoskeletal Exam date and time: 07/21/2024 8:11 AM Age: 64 years old Clinical indication: Abnormal findings; Abnormal imaging test; Prior surgery; Surgery date: 6+ months; Surgery type: Krish[facility] 2016 TECHNIQUE: Imaging protocol: Magnetic resonance imaging of the pelvis without and with contrast. Exam focused on the musculoskeletal system. Contrast material: DOTAREM; Contrast volume: 15 ml; Contrast route: INTRAVENOUS (IV); COMPARISON: 1. CR PELVIS AP 08/19/2017 1:39 PM 2. CR XR HIP LT AP LAT ONLY 06/08/2024 1:40 PM 3. NM BONE SCAN 3 PHASE 06/27/2024 7:[address] LOWER EXTREMITY LT WO 06/27/2024 10:[address] ABDOMEN PELVIS W 07/21/2024 11:25 AM FINDINGS: Reproductive: Probable anterior uterine fibroid measuring up to 1.8 cm. Bones/joints: Status post left hip replacement surgery; the metallic hardware results in geometric distortion and signal dropout, degrading local image quality. There are at least mild degenerative changes of the visualized lower lumbar spine with likely grade 1 anterolisthesis of L5, stable. Complex multilobulated structure associated with the anterior left hip joint, with the medial component measuring approximately 3.7 x 3.1 cm (series 8001, image 25), the central component measures approximately 2.1 x 1.1 cm (series 37415, image 25), and the lateral component measuring approximately 2.0 x 2.6 cm (series 8001, image 23). In total, the collection may measure as much as 8.4 cm in craniocaudal dimension and demonstrates extension through the femoral canal to the anterolateral extraperitoneal left lower pelvis. The multi lobed appearance appears to be secondary to impression on the collection secondary to the traversing left iliopsoas tendon. There is mild heterogeneous internal enhancement. Within the collection at the anteromedial joint space there is a low signal intensity structure measuring up to 0.8 cm (series 8001, image 23). Additional smaller heterogeneous foci of signal dropout are consistent with calcification seen on CT. These likely represent intra-articular loose bodies. To the extent evaluated, no marrow infiltrative changes are appreciated. Soft tissues: Grade 1-2 injury of the right hamstring origin, predominantly involving the conjoint tendon, with mild surrounding soft tissue edema. Postoperative changes of chronic surgical scar of the posterolateral left hip. Fluid of the lateral left hip deep to the fascia love likely represents bursitis. IMPRESSION: 1. Complex, multilobulated collection associated with the anterior left hip with likely intra-articular loose bodies and heterogeneous mild internal enhancement. 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 Infection is considered less likely given the absence of significant surrounding edema or enhancement, lymphadenopathy, and relatively benign appearance on prior bone scan. 2. Grade 1-2 injury of the right hamstring origin. Dictated and Authenticated by: Chance Don MD. Orderin Ashleigh Lawton MD
== END 2024-07-21 01:04 ==
LOC: DI 00:44
PROVIDERS: PCP Family Medicine; Visit Provider Student in an Organized Health Care Education/Training Program
DX: R93.5 Abnormal findings on diagnostic imaging of other abdominal regions, including retroperitoneum (principal)
CPT/HCPCS: 72197; 74177; 82565

== ENCOUNTER 2024-08-31 11:11 | Outpatient (REF) | payer MEDICAID, SELFPAY ==
[2024-08-31 16:42] LABS: Anion Gap 8.1 mmol/L (3-11); BUN 25 mg/dL (7-18); CO2 27.9 mmol/L (21.0-32.0); CREATININE 1.1 mg/dL (0.55-1.02); Calcium 9.9 mg/dL (8.5-10.1); Chloride 104 mmol/L (98-107); Estimated GFR 56.11 (mL/min/1.73m2); Glucose 95 mg/dL (74-106); Potassium 4.9 mmol/L (3.5-5.1); Sodium 140 mmol/L (136-145)
[2024-08-31 16:58] LABS: Hemoglobin A1C 5.4 % (<5.7)
== END 2024-08-31 11:12 | disposition home or self-care (01) ==
LOC: NCHCN 11:11
PROVIDERS: PCP Family Medicine; Visit Provider Family Medicine
DX: N18.31 Chronic kidney disease, stage 3a (principal); R73.03 Prediabetes
CPT/HCPCS: 80048; 83036

== ENCOUNTER 2024-10-19 01:52 | Outpatient (CLI) | payer MEDICAID, SELFPAY ==
--- NOTE | 2024-10-19 08:45 | DI.MAMMO_ITS ---
Exam(s) MAMMO SCREENING EXAM: MAMMO SCREENING CLINICAL HISTORY: SCREENING, Z12.31. TECHNIQUE: Bilateral full field digital CC and MLO mammographic images were obtained with 3D tomosynthesis and utilizing computer aided detection (CAD). COMPARISON: Prior mammograms were reviewed. FINDINGS: There has been no significant change in the appearance and distribution of the fibroglandular tissue. Again noted is architectural distortion bilaterally from prior bilateral reduction surgery. There are no new spiculated masses nor do malignant appearing microcalcification groups. There is no significant architectural distortion nor skin thickening-retraction. IMPRESSION: No radiographic evidence of malignancy. BI-RADS Category 1 - Negative Breast Density - Category B - There are scattered areas of fibroglandular density. Breast density Category C or D implies that the patient has dense breast tissue. Dense breast tissue can make it harder to find cancer on a mammogram. Dense breast tissue is also associated with an increased risk of breast cancer. This information about the result of the mammogram report was provided to the patient to raise their awareness. Use this report when you speak with the patient about their risks for breast cancer, which includes their family history. At that time, you may recommend additional screening tests (Ultrasound or MRI) as these tests may add significant information. A negative radiographic report should not delay biopsy if a dominant or clinically suspicious mass is present. Up to ten percent of cancers are not identified on mammography. A negative report may reinforce clinical impression. Adenosis and dense breasts may obscure an underlying neoplasm. False positive reports average 6 to 10%. Patient will receive a letter notifying them of these results.
== END 2024-10-19 02:12 ==
LOC: DI 01:52
PROVIDERS: PCP Family Medicine; Visit Provider Family Medicine
DX: Z12.31 Encounter for screening mammogram for malignant neoplasm of breast (principal); R92.323 Mammographic fibroglandular density, bilateral breasts
CPT/HCPCS: 77063; 77067

== ENCOUNTER 2025-01-05 22:17 | Outpatient (REF) | payer MEDICARE, SELFPAY | END 2025-01-05 22:18 | disposition home or self-care (01) | LOC: LBN 22:17 | PROVIDERS: PCP Family Medicine; Visit Provider Nurse Practitioner Family | DX: N30.01 Acute cystitis with hematuria (principal) | CPT/HCPCS: 87086 ==